=== PATIENT | male | born 1960 | race Caucasian/White ===

== ENCOUNTER 2018-09-19 16:49 | Emergency (ER) | payer OTHER ==
[~2018-09-19] VITALS: Ht 182.9 cm; Wt 106.0 kg
[2018-09-19 19:59] VITALS: BP 133/94
== END 2018-09-19 19:40 | disposition home or self-care (01) ==
LOC: ER 16:49
DX: M25.561 Pain in right knee (principal); Z60.2 Problems related to living alone
CPT/HCPCS: 29530; 73564; 99284